=== PATIENT | male | born 1960 | race Caucasian/White ===

== ENCOUNTER 2025-09-19 19:39 | Emergency (ER) | payer MEDICARE, OTHER ==
[~2025-09-19] VITALS: Ht 175.3 cm; Wt 93.3 kg
[~2025-09-19 19:39] MED LIST: PERCOCET 10-321 EACH PO; SIMVASTATIN20 MG PO
[2025-09-19] MEDS ORDERED: HYDROmorphone HCL 1 MG/ML SYR IV ONE (20:15)
[2025-09-19 20:18] LABS: BASOPHILS 0.6 % (0.2-1.2); EOSINOPHILS 2.6 % (0.8-7.0); LYMPHOCYTES 15.3 % (21.8-53.1); MCH 31.3 PG (25.7-32.2); MCHC 34.0 g/dL (32.3-36.5); MCV 92.0 fL (79.0-92.2); MONOCYTES 10.2 % (5.3-12.2); NEUTROPHILS 71.1 % (34.0-67.9); RBC 5.27 M/uL (4.63-6.08)
[2025-09-19 20:47] LABS: ALCOHOL, MEDICAL <3 ng/dL (<3); ALT (SGPT) 38 U/L (14-59); AST (SGOT) 30 U/L (15-37); GLOMERULAR FILTRATION RATE,EST 96 mL/min (>60); PROTEIN, TOTAL 8.1 g/dL (6.4-8.2); UREA NITROGEN 19 mg/dL (7-18)
[2025-09-19 21:31] LABS: BLOOD/HGB, URINE TRACE-I (Negative); KETONE, URINE SMALL (Negative); LEUK ESTERASE, URINE NEGATIVE (negative); NITRITE, URINE NEGATIVE (negative)
[2025-09-19 21:38] LABS: BACTERIA, URINE RARE /hpf (negative); CASTS, URINE NONE SEEN \\lpf; CRYSTALS, URINE NONE SEEN (0-1+); EPITHELIAL CELLS, URINE SQUAMOUS 1+ /lpf (0-1+); REFLEX CULTURE, URINE No (No)
[2025-09-19] MEDS ORDERED: OXYCODONE/ACETAMINOPHEN 1 TAB HOME.PACK PO ONE (21:45)
[2025-09-19] MEDS ORDERED: PERCOCET 5-3251 EACH PO (21:45)
[2025-09-19 21:53] LABS: AMPHETAMINES, URINE NEGATIVE (NEGATIVE); BARBITURATES, URINE NEGATIVE (NEGATIVE); BENZODIAZEPINE, URINE NEGATIVE (NEGATIVE); CANNABINOID, URINE NEGATIVE (NEGATIVE); COCAINE, URINE NEGATIVE (NEGATIVE); ECSTASY, URINE NEGATIVE (NEGATIVE); FENTANYL, URINE NEGATIVE (NEGATIVE); METHADONE, URINE NEGATIVE (NEGATIVE); OPIATES, URINE POSITIVE (NEGATIVE); OXYCODONE, URINE POSITIVE (NEGATIVE); PHENCYCLIDINE, URINE NEGATIVE (NEGATIVE)
[2025-09-19 22:16] VITALS: BP 104/74
--- NOTE | 2025-09-20 06:02 | EKG ---
[facility] [address] [facility] [place], [place] [address] Signed Normal sinus rhythm Normal ECG No previous ECGs available Confirmed by MAKR WOODWARD MD ([id number]) on 09/20/2025 6:02:24 AM Electronically Signed By: MARK WOODWARD 09/20/25 0602 PATIENT NAME: SUMAYA VIRK Electrocardiogram DATE OF : 58 PHYSICIAN: MARK WOODWARD REPORT #: [id number] REPORT IS CONFIDENTIAL AND NOT TO BE RELEASED WITHOUT AUTHORIZATION
== END 2025-09-19 22:27 | disposition home or self-care (01) ==
LOC: ED 19:39
PROVIDERS: Internal Medicine
DX: S22.42XA Multiple fractures of ribs, left side, initial encounter for closed fracture (principal); F17.200 Nicotine dependence, unspecified, uncomplicated; Z88.0 Allergy status to penicillin; Z79.899 Other long term (current) drug therapy; W19.XXXA Unspecified fall, initial encounter
CPT/HCPCS: 36415; 71045; 71260; 74177; 80053; 80307; 81001; 82550; 83690; 84484; 85025; 93005; 93010; 96374; 99284-25; G0480; J1171; Q9967